=== PATIENT | female | born 1950 | race Caucasian/White ===

== ENCOUNTER 2017-01-14 10:49 | Day surgery (SDC) | payer BC ==
[~2017-01-14 10:49] MED LIST: Buffered Lidocaine 0.9% SYRIN* 5 ML/SYR SYRINGE INTRADERM ONE
[2017-01-14] MEDS ORDERED: Buffered Lidocaine 0.9% SYRIN* 5 ML/SYR SYRINGE ONE (11:09)
[2017-01-14] MEDS ORDERED: Midazolam* 1 MG/ML 5 ML VIAL (5 MG) ONE (12:32)
[2017-01-14] MEDS ORDERED: fentaNYL* 50 MCG/ML 2 ML VIAL (100 MCG VIAL) ONE (12:32)
[2017-01-14] MEDS ORDERED: Propofol* 10 MG/ML 20 ML BTL IV PUSH ONE (12:37)
[2017-01-14] MEDS ORDERED: Lidocaine 2% PF * 5 ML VIAL ONE (12:37)
[2017-01-14 13:35] VITALS: BP 120/70
--- NOTE | 2017-01-15 06:48 | PRO ---
DATE OF PROCEDURE: 01/14/17 [facility] PROCEDURE: Colonoscopy. INDICATION: Incomplete colonoscopy performed elsewhere. REFERRING PHYSICIAN: Dr. Pham Roberts.* MEDICATIONS GIVEN: General anesthesia per anesthesia services. DESCRIPTION OF PROCEDURE: After the colonoscopy procedure, including the risks , benefits and alternatives, not limited to perforation, surgery, and/or were explained to Ms. Rowley, written consent was then obtained. IV medication was given and a rectal exam was performed. It was unremarkable. An Olympus pediatric colonoscope was then inserted into the patient's rectum and advanced to the splenic flexure. Unfortunately, I could not navigate around the splenic flexure. I spent approximately 25 minutes trying to navigate around this area. Her colon was very fixed within the abdominal cavity likely secondary to adhesions. She had numerous surgeries in the past. I really did not feel comfortable and trying to push through this area even getting to the rectosigmoid junction was difficult and arduous. Given the fact that she had a previous incomplete colonoscopy in the past, I decided to terminate the procedure at this point. She did have a medium- sized polyp, removed with snare polypectomy. This was located at 20 cm from the anal verge. The scope was then withdrawn from the patient. She tolerated the procedure well and was returned to recovery room in stable condition. IMPRESSION: 1. Incomplete colonoscopy to the splenic flexure with snare polypectomy. 2. Incomplete colonoscopy terminated secondary to adhesions and acute angulation of the colon. 3. I will follow up on the biopsy of the polyp. She will need a virtual colonography to complete her screening. [id number]/[facility] #: [id number] ARSALAN
== END 2017-01-14 14:06 | disposition home or self-care (01) ==
LOC: OR 10:49
PROVIDERS: ATTEND Internal Medicine Gastroenterology
DX: Z12.11 Encounter for screening for malignant neoplasm of colon (principal); K56.50 Intestinal adhesions [bands], unspecified as to partial versus complete obstruction; K63.5 Polyp of colon; Z80.0 Family history of malignant neoplasm of digestive organs; Z85.3 Personal history of malignant neoplasm of breast; F17.210 Nicotine dependence, cigarettes, uncomplicated; Z92.83 Personal history of failed moderate sedation
CPT/HCPCS: 88305; J2250; J2704; J3010